=== PATIENT | male | born 1990 | race Caucasian/White ===

== ENCOUNTER 2022-10-13 07:16 | Emergency (ER) | payer OTHER ==
[2022-10-13] MEDS ORDERED: LIDOCAINE 1% MPF 5 ML VIAL ONE (08:10)
--- NOTE | 2022-10-13 08:46 | EDPHYS ---
Physician Documentation [facility] Name: Tony Velásquez Age: 32 yrs Sex: Male : 1990 Arrival Date: 10/13/2022 Time: 07:17 Bed DIS1 Private MD: ED Physician Rupert Hung HPI: 10/13 07:22 This 32 yrs old Male presents to ER via Unassigned with complaints of Dog Bite, jh7 Laceration To Lip. 07:22 The patient was bitten on the face, by a dog, in an unprovoked manner, Patient reports jh7 that the dog is old and temperamental. Onset: The symptoms/episode began/occurred acutely. Animal information: Animal's vaccinations are up to date. Secondary to the bite the patient reports multiple lacerations. 07:22 Associated signs and symptoms: Pertinent positives: pain at site, swelling at site, jh7 tenderness, Pertinent negatives: bony tenderness, erythema at site, fever, loss of consciousness. 07:22 Patient states that his mother's small dog who normally has temperament issues, bit his jh7 lip while he was attempting to fall asleep. The dog has a history of biting. States that the bite occurred a few hours ago.. Historical: - Allergies: 08:10 PENICILLINS; jl7 08:10 c-klor; jl7 - Home Meds: 08:10 sertraline oral [Active]; jl7 - PMHx: 08:10 Anxiety; jl7 - PSHx: 08:10 None; jl7 - Immunization history:: Client reports receiving the 2nd dose of the Covid vaccine. - Social history:: Smoking status: Patient denies any tobacco usage or history of. ROS: 07:22 Constitutional: Negative for fever, chills, and weight loss, Eyes: Negative for injury, jh7 pain, redness, and discharge, Neck: Negative for injury, pain, and swelling, Cardiovascular: Negative for chest pain, palpitations, and edema, Respiratory: Negative for shortness of breath, cough, wheezing, and pleuritic chest pain, Abdomen/GI: Negative for abdominal pain, nausea, vomiting, diarrhea, and constipation, Back: Negative for injury and pain, MS/Extremity: Negative for injury and deformity, Neuro: Negative for headache, weakness, numbness, tingling, and seizure. 07:22 Skin: Positive for laceration(s), Negative for cellulitis. 07:22 All other systems are negative. Exam: 07:22 Constitutional: This is a well developed, well nourished patient who is awake, alert, jh7 and in no acute distress. Eyes: Pupils equal round and reactive to light, extra-ocular motions intact. Lids and lashes normal. Conjunctiva and sclera are non-icteric and not injected. Cornea within normal limits. Periorbital areas with no swelling, redness, or edema. Cardiovascular: Regular rate and rhythm with a normal S1 and S2. No gallops, murmurs, or rubs. Normal PMI, no JVD. No pulse deficits. Respiratory: Lungs have equal breath sounds bilaterally, clear to auscultation and percussion. No rales, rhonchi or wheezes noted. No increased work of breathing, no retractions or nasal flaring. Back: No spinal tenderness. No costovertebral tenderness. Full range of motion. MS/ Extremity: Pulses equal, no cyanosis. Neurovascular intact. Full, normal range of motion. Neuro: Awake and alert, GCS 15, oriented to person, place, time, and situation. Motor strength 5/5 in all extremities. Sensory grossly intact. Normal gait. 07:22 Head/face: Noted is a laceration(s), that is jagged, 1.5 cm(s), of the lower vermilion border. 07:22 Skin: injury, laceration(s), the wound is approximately 1.5 cm(s), with a depth of 0.25 cm(s), of the lower vermilion border, the second wound is approximately 1 cm(s), with a depth of 0.25 cm(s), of the mouth. Vital Signs: 08:09 BP 130 / 79; Pulse 68; Resp 17; Temp 97.7; Pulse Ox 95% ; Weight 88.9 kg; Height 5 ft. jl7 9 in. (175.26 cm); Pain 7/10; 08:09 Body Mass Index 28.94 (88.90 kg, 175.26 cm) jl7 Laceration: 07:22 Wound Repair of 1.5cm ( 0.6in ) subcutaneous laceration to lower vermilion border. jh7 Distal neuro/vascular/tendon intact. Anesthesia: Local anesthetic administered with 2 mls of 1% lidocaine. Wound prep: Moderate cleansing with hibiclenz by me. Skin closed with 4 6-0 Prolene using simple sutures and sterile technique. Dressed with open to air. Patient tolerated well. 07:22 Wound Repair of 1cm ( 0.4in ) subcutaneous laceration to left lower lip. Distal jh7 neuro/vascular/tendon intact. Anesthesia: Local anesthetic administered with 1 mls of 1% lidocaine. Wound prep: Moderate cleansing by me. Skin closed with 3 6-0 Prolene using simple sutures and sterile technique. Dressed with open to air. Patient tolerated well. MDM: 07:22 Patient medically screened. [facility] 09:15 Differential diagnosis: Facial laceration. Rabies Status: History of Rabies [facility] Immunization. Data reviewed: vital signs, nurses notes. Data interpreted: Pulse oximetry: is 95 %. Interpretation: normal. Counseling: I had a detailed discussion with the patient and/or guardian regarding: the historical points, exam findings, and any diagnostic results supporting the discharge/admit diagnosis, the need for outpatient follow up, For suture removal within 5 to 6 days, to return to the emergency department if symptoms worsen or persist or if there are any questions or concerns that arise at home. ED course: The patient tolerated the laceration repair well. 7 sutures were applied. Informed him that usually dog bites or not close due to them being dirty wounds, however due to gaping facial lacerations, closure was appropriate. Patient will be started on Augmentin today (only allergic to Penicillin, previously tolerated Amoxicillin) and was instructed to monitor for signs and symptoms of infection. Discussed signs and symptoms of infection and when to return for reeval. Sutures should be removed within 5 to 6 days.. 10/13 07:49 Order name: Dressing - Wound; Complete Time: 08:50 [facility] 10/13 07:49 Order name: Gloves, Sterile; Complete Time: 08:50 [facility] 10/13 07:49 Order name: Prolene, Sutures: 6'0 x 2; Complete Time: 08:50 [facility] 10/13 07:49 Order name: Setup Suture Tray; Complete Time: 08:50 [facility] Administered Medications: 08:00 Drug: Lidocaine (1 %) 20 ml {Note: administered by ERP.} Volume: 20 ml; Route: jl7 Infiltration; 08:55 Drug: Tetanus-Diphtheria Toxoid Adult 0.5 ml {Electronic Warfare Specialist: [employer] ([place]). Exp: vg1 04/24/2123. Lot #: [id number]. } Route: IM; Site: left deltoid; 09:07 Follow up: Response: Medication administered at discharge. vg1 Disposition: 15:17 Co-signature as Attending Physician, Rupert Hung MD I agree with the assessment and rt plan of care. Disposition Summary: 10/13/22 08:46 Discharge Ordered Location: [place] [id number] Problem: new [facility] Symptoms: have improved [facility] Condition: Stable [facility] Diagnosis - Laceration without foreign body of lip [facility] Followup: [facility] - With: Emergency Department - When: 5 - 6 days - Reason: Staple/Suture removal Discharge Instructions: - Discharge Summary Sheet [facility] - Laceration Care, Adult [facility] - Facial Laceration [facility] - Sutured Wound Care [facility] - Animal Bite, Adult [facility] Forms: - Medication Reconciliation Form [facility] - Thank You Letter [facility] - Antibiotic Education [facility] Prescriptions: - Augmentin 875-125 mg Oral Tablet - take 1 tablet by ORAL route every 12 hours for 10 days; 20 tablet; Refills: 0, [facility] Product Selection Permitted Signatures: Zuri Durán RN RN 7 Tanna Green RN RN vg1 Dorina Solomon FNP FNP Rupert Jeronimo MD MD rt Corrections: (The following items were deleted from the chart) 08:12 08:10 Home Meds: None; [facility] j[facility] 09:48 07:22 Onset: The symptoms/episode began/occurred acutely, [place] [id number]
--- NOTE | 2022-10-13 08:46 | ER ---
Nurse's Notes 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 Coronavirus screen: At this time, the client does not indicate any symptoms associated with coronavirus-19. Ebola Screen: No symptoms or risks identified at this time. Initial Sepsis Screen: Does the patient meet any 2 criteria? No. Patient's initial sepsis screen is negative. Does the patient have a suspected source of infection? No. Patient's initial sepsis screen is negative. Risk Assessment: Do you want to hurt yourself or someone else? Patient reports no desire to harm self or others. Onset of symptoms was October 13, 2022. 08:09 Method Of Arrival: Ambulatory [facility] 08:09 Acuity: JUSTINA 4 jl7 Triage Assessment: 08:10 Bite description: bite sustained to lower vermilion border and face by a dog, animal [facility] information: vaccination(s) is current. General: Appears in no apparent distress. uncomfortable, Behavior is calm, cooperative, appropriate for age. Pain: Complains of pain in lower vermilion border Pain currently is 7 out of 10 on a pain scale. Historical: - Allergies: 08:10 PENICILLINS; jl7 08:10 c-klor; jl7 - Home Meds: 08:10 sertraline oral [Active]; jl7 - PMHx: 08:10 Anxiety; 7 - PSHx: 08:10 None; jl7 - Immunization history:: Client reports receiving the 2nd dose of the Covid vaccine. - Social history:: Smoking status: Patient denies any tobacco usage or history of. Assessment: 07:20 Reassessment: ERP in lobby assessing pt. [facility] 09:07 Reassessment: Patient appears in no apparent distress at this time. Patient and/or vg1 family updated on plan of care and expected duration. Pain level reassessed. Patient is alert, oriented x 3, equal unlabored respirations, skin warm/dry/pink. Patient denies pain at this time. Vital Signs: 08:09 BP 130 / 79; Pulse 68; Resp 17; Temp 97.7; Pulse Ox 95% ; Weight 88.9 kg; Height 5 ft. jl7 9 in. (175.26 cm); Pain 7/10; 08:09 Body Mass Index 28.94 (88.90 kg, 175.26 cm) 7 ED Course: 07:17 Patient arrived in ED. mr 07:22 [facility] Solomon [facility] 07:22 Rupert Hung MD is Attending Physician. 7 08:10 Triage completed. jl7 08:10 Arm band placed on right wrist. 7 08:46 Zuri Durán RN is Primary Nurse. 7 09:08 No provider procedures requiring assistance completed. Patient did not have IV access vg1 during this emergency room visit. Administered Medications: 08:00 Drug: Lidocaine (1 %) 20 ml {Note: administered by ERP.} Volume: 20 ml; Route: jl7 Infiltration; 08:55 Drug: Tetanus-Diphtheria Toxoid Adult 0.5 ml {Technical Solutions Consultant: [employer] ([employer]). Exp: vg1 04/24/2123. Lot #: [id number]. } Route: IM; Site: left deltoid; 09:07 Follow up: Response: Medication administered at discharge. vg1 Medication: 09:08 Vaccine Information Statement (VIS) provided today. Questions and/or concerns vg1 addressed. VIS edition date: May 16, 2021. Outcome: 08:46 Discharge ordered by . 7 09:08 Discharged to home ambulatory, with family. vg1 09:08 Condition: good 09:08 Discharge instructions given to patient, Instructed on discharge instructions, follow up and referral plans. medication usage, wound care, Demonstrated understanding of instructions, follow-up care, medications, wound care, Prescriptions given X 1. 09:09 Patient left the ED. vg1 Signatures: [place] mr Zuri Durán, RN RN jl7 Tanna Green RN RN vg1 Dorina Solomon FNP FNP [facility] Corrections: (The following items were deleted from the chart) 08:12 08:10 Home Meds: None; 7 7
[2022-10-13] MEDS ORDERED: TDAP (DIPHTH,PERTUSS(ACELL),TET VAC) 0.5 ML VIAL IMVAC ONE (08:57)
[2022-10-13 09:38] VITALS: BP 130/79; TEMP 97.7; O2SAT 95
== END 2022-10-13 09:09 | disposition home or self-care (01) ==
LOC: ER 07:16
PROC: 0HQ1XZZ Repair Face Skin, External Approach (ICD-10-PCS; principal; 2022-10-13)
DX: S01.511A Laceration without foreign body of lip, initial encounter (principal); Z23 Encounter for immunization; Z88.0 Allergy status to penicillin
CPT/HCPCS: 12011; J2001; 90471; 99283